=== PATIENT | female | born 1940 ===

== ENCOUNTER 2020-04-20 09:30 | Outpatient (CLI) | payer OTHER | END 2020-04-20 09:36 | disposition HB | LOC: TOM 09:30 | DX: Q61.02 Congenital multiple renal cysts (principal); K62.89 Other specified diseases of anus and rectum; K57.90 Diverticulosis of intestine, part unspecified, without perforation or abscess without bleeding; Z12.11 Encounter for screening for malignant neoplasm of colon ==